=== PATIENT | male | born 1990 | race Caucasian/White ===

== ENCOUNTER 2017-08-28 11:47 | Emergency (ER) | payer SELFPAY ==
[~2017-08-28] VITALS: Ht 165.1 cm; Wt 90.0 kg
[~2017-08-28 11:47] MED LIST: POLY10DR19 LEFT EYE
[2017-08-28 11:49] VITALS: Ht 165.1 cm; Wt 90.0 kg
[2017-08-28] MEDS ORDERED: LIDOCAINE/MYLANTA 40 ML BTL PO ONE (12:30)
--- NOTE | 2017-08-28 13:02 | RADRPT ---
PROCEDURE: XR Chest PA CLINICAL INDICATION: Chest pain TECHNIQUE: An PA radiograph of the chest was submitted. COMPARISON: None. FINDINGS: Cardiovascular: The cardiovascular silhouette appears unremarkable. Lung Garcia: The lung garcia appear clear with no nodule, alveolar infiltrate, or interstitial promi nence evident. Pleural Spaces: There is no pneumothorax or pleural fluid accumulation evident. Osseous Structures: The osseous structures appear intact. Soft Tissues: The soft tissues appear unremarkable. IMPRESSION: Unremarkable PA chest. Physician Nilay Date Time Electronically viewed and signed by Brandon Fernandez Physician on 08/28/2017 13:02 /
[2017-08-28] MEDS ORDERED: RANI150T9 PO (13:24)
--- NOTE | 2017-08-28 13:24 | ERD ---
ER Documentation Chief Complaint Date/Time DATE: 08/28/17 TIME: 13:20 Chief Complaint flu like symptoms since HPI This 27-year-old male presents with on and off substernal burning chest pain that sometimes radiates to his throat for the last 3 months. Triage is wrong. States that he occasionally has shortness of breath with it but denies nausea vomiting. States that the pain is not related to exertion and seems to be random when it comes and goes and lasts only for seconds to several minutes. Patient has never smoked and has no history of heart attack at young age. He has no other risk factors. ROS All systems reviewed and are negative except as per history of present illness. Medications Home Meds Active Scripts Polymyxin B Sulfate-TMP* (Polymyxin B-TMP Eye Drops*) 10 Ml Drops, 1 DROP LEFT EYE QID for 7 Days, EA Prov:CIRA SINCLAIR PA-C 10/31/16 Allergies Allergies: Coded Allergies: Penicillins (Unverified Allergy, Unknown, 08/28/17) PMhx/Soc Medical and Surgical Hx: pt denies Medical Hx, pt denies Surgical Hx Hx Alcohol Use: Yes (socially) Hx Substance Use: Yes (marijuana) Hx Tobacco Use: No Smoking Status: Never smoker Physical Exam Vitals Vital Signs Date Time Temp Pulse Resp B/P Pulse Ox O2 Delivery O2 Flow Rate FiO2 08/28/17 11:49 97.2 77 18 135/72 99 Physical Exam Const: [] Stress Head: Atraumatic Eyes: Normal Conjunctiva ENT: Normal External Ears, Nose and Mouth. Neck: Full range of motion..~ No meningismus. Resp: Clear to auscultation bilaterally Cardio: Regular rate and rhythm, no murmurs Abd: Soft, non tender, non distended. Normal bowel sounds Skin: No petechiae or rashes Ext: No cyanosis, or edema Results 24 hrs Current Medications Medications (Trade) Dose Ordered Sig/Kinga Route PRN Reason Start Time Stop Time Status Last Admin Dose Admin Miscellaneous Medication (Gi Cocktail (2)) 40 ml ONCE ONCE PO 08/28/17 12:30 08/28/17 12:32 DC 08/28/17 13:00 Procedures/MDM Atypical chest pain with history concerning for GERD. No signs of electrical activity on EKG. Normal chest x-ray. Patient is asymptomatic in the ER after receiving a GI cocktail. I am going to discharge him with Zantac for a month as well as instructions to follow-up with his primary care doctor and obtain an echocardiogram. Cautions given for any increasing chest pain EKG interpretation: Normal sinus rhythm rate of 71, normal axis, no ST or T- wave changes concerning for acute ischemia, normal EKG. Normal intervals. Chest x-ray interpretation: I see no acute process. I see no fractures, no bony abnormalities, no widened mediastinum, no pneumothorax, no infiltrates, no pulmonary edema. Departure Diagnosis: Primary Impression: Atypical chest pain Additional Impression: GERD (gastroesophageal reflux disease) CHELA IRVIN DO Aug 28, 2017 13:23
== END 2017-08-28 17:59 | disposition home or self-care (01) ==
LOC: FTE 11:47
DX: R07.89 Other chest pain (principal); K21.9 Gastro-esophageal reflux disease without esophagitis
CPT/HCPCS: 71010; 93005